=== PATIENT | female | born 1950 | race Caucasian/White ===

== ENCOUNTER → 2020-09-11 | Outpatient (CLI) | payer MEDICARE ==
[~2020-09-11] MED LIST: ASPIRIN CHEWABL81 MG PO; COZAAR100 MG PO; DOCUSATE SODIU100 MG PO; KLONOPIN1 MG PO; LASIX20 MG PO; LEVOTHYROXINE75 MC1 PO; LOW DOSE ASPIRI81 MG PO; NAPROXEN250 MG PO; NITROSTAT0.4 MG SL; NORVASC5 MG PO; OMEPRAZOLE20 M1 PO; PLAVIX 75 MG TA75 MG PO; PLAVIX75 MG PO; PRAVASTATIN SOD80 MG PO; ROXICODONE TAB 55 MG PO; SPIRIVA18 MCG INH; TOPROL XL 50 MG50 MG PO; VENTOLIN HFA 66.7 GM INH
[2020-09-11 10:13] LABS: HEMOGLOBIN 15.4 gm/dl (12.3-15.3); RED BLOOD COUNT 4.79 M/UL (4.00-5.10)
[2020-09-11 10:38] LABS: BUN/CREATININE RATIO 17 (0-10)
== END ==
LOC: OPSV2 09:00
PROVIDERS: Anesthesiology; Obstetrics & Gynecology
DX: Z01.812 Encounter for preprocedural laboratory examination (principal); D06.9 Carcinoma in situ of cervix, unspecified
CPT/HCPCS: 36415; 80048; 81001; 85025

== ENCOUNTER 2020-09-18 06:31 | Day surgery (SDC) | payer MEDICARE ==
[~2020-09-18] VITALS: Ht 160 cm; Wt 75.3 kg
[~2020-09-18 06:31] MED LIST changes: -ASPIRIN CHEWABL81 MG PO; -DOCUSATE SODIU100 MG PO; -NAPROXEN250 MG PO; -PLAVIX 75 MG TA75 MG PO; -ROXICODONE TAB 55 MG PO
[2020-09-18] MEDS ORDERED: PLAVIX 75 MG TA75 MG PO (07:32)
[2020-09-18] MEDS ORDERED: ASPIRIN CHEWABL81 MG PO (07:32)
[2020-09-18] MEDS ORDERED: ROXICODONE TAB 55 MG PO ×2 (10:37→13:26)
[2020-09-18] MEDS ORDERED: DOCUSATE SODIU100 MG PO (10:37)
[2020-09-18] MEDS ORDERED: NAPROXEN250 MG PO (10:37)
[2020-09-18 13:59] LABS: HEMOGLOBIN 15.5 gm/dl (12.3-15.3)
== END 2020-09-18 16:17 | disposition home or self-care (01) ==
LOC: OR 06:31 → OB 11:23 → OR 16:17
PROVIDERS: Obstetrics & Gynecology
DX: N80.0 Endometriosis of uterus (principal); D27.1 Benign neoplasm of left ovary; D27.0 Benign neoplasm of right ovary; N95.2 Postmenopausal atrophic vaginitis; L82.1 Other seborrheic keratosis; D06.9 Carcinoma in situ of cervix, unspecified; E03.9 Hypothyroidism, unspecified; Z95.1 Presence of aortocoronary bypass graft; Z79.82 Long term (current) use of aspirin; Z79.01 Long term (current) use of anticoagulants; Z20.822 Contact with and (suspected) exposure to COVID-19; J43.9 Emphysema, unspecified; E78.5 Hyperlipidemia, unspecified; I10 Essential (primary) hypertension; Z95.5 Presence of coronary angioplasty implant and graft; I25.10 Atherosclerotic heart disease of native coronary artery without angina pectoris; I25.2 Old myocardial infarction; Z88.1 Allergy status to other antibiotic agents; Z95.820 Peripheral vascular angioplasty status with implants and grafts
CPT/HCPCS: 36415; 85014; 85018; J0690; J1100; J1170; J1885; J2001; J2250; J2405; J2704; J2710; J2795; J3010; J7120; U0002

== ENCOUNTER → 2020-12-12 | Outpatient (CLI) | payer MEDICARE ==
[~2020-12-12] MED LIST changes: +ASPIRIN CHEWABL81 MG PO; +DOCUSATE SODIU100 MG PO; +NAPROXEN250 MG PO; +PLAVIX 75 MG TA75 MG PO; +ROXICODONE TAB 55 MG PO
== END ==
LOC: US 10:12
DX: R09.89 Other specified symptoms and signs involving the circulatory and respiratory systems (principal); I65.22 Occlusion and stenosis of left carotid artery
CPT/HCPCS: 93880

== ENCOUNTER 2021-07-13 01:35 | Emergency (ER) | payer MEDICARE ==
[2021-07-13 03:17] LABS: HEMOGLOBIN 15.4 gm/dl (12.3-15.3); RED BLOOD COUNT 4.85 M/UL (4.00-5.10); WHITE BLOOD COUNT 13.6 K/UL (4.5-11.0)
[2021-07-13 03:37] LABS: BUN/CREATININE RATIO 24 (0-10)
[2021-07-13] MEDS ORDERED: CEPHALEXIN500 M1 PO (08:19)
[2021-07-13] MEDS ORDERED: FLOMAX0.4 MG PO (08:19)
== END 2021-07-13 08:24 | disposition home or self-care (01) ==
LOC: ER1 01:35
PROVIDERS: Physician Assistant
DX: N13.2 Hydronephrosis with renal and ureteral calculous obstruction (principal); I11.9 Hypertensive heart disease without heart failure; F17.200 Nicotine dependence, unspecified, uncomplicated; Z98.84 Bariatric surgery status; Z79.82 Long term (current) use of aspirin; Z79.899 Other long term (current) drug therapy
CPT/HCPCS: 80053; 81001; 82150; 82550; 82553; 83605; 83690; 83874; 85025; 87040; 96374; 96375; 99284; J1885; J2270; J2405; Q9967